=== PATIENT | male | born 2000 | race Caucasian/White ===

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

== ENCOUNTER 2021-02-09 16:25 | Emergency (ER) | payer OTHER ==
[~2021-02-09] VITALS: Ht 182.9 cm; Wt 70.0 kg
[2021-02-09 16:25] VITALS: BP 131/76
[2021-02-09 20:35] LABS: BASO # 0.1 10^3/uL (0.0-0.2); BASO % 0.4 % (0.0-1.0); EOS # 0.9 10^3/uL (0.0-0.5); EOS % 7.8 % (0.0-3.0); HEMATOCRIT 45.5 % (42.0-52.0); LYMPH # 2.6 10^3/uL (1.5-5.0); LYMPH % 22.5 % (24.0-44.0); MEAN CORPUSCULAR HEMOGLOBIN 29.9 pg (27.0-33.0); MEAN CORPUSCULAR VOLUME 90.6 fl (80.0-96.0); MONO % 8.4 % (2.0-8.0); NEUTROPHILS # 6.9 10^3/uL (1.5-8.5); NEUTROPHILS % 60.6 % (36.0-66.0); PLATELET COUNT, AUTOMATED 390 10^3/uL (150-450); RED BLOOD COUNT 5.02 10^6/uL (4.30-6.10); WHITE BLOOD COUNT 11.4 10^3/uL (4.0-10.0)
[2021-02-09 21:10] LABS: ALBUMIN 4.1 GM/DL (3.2-5.2); ALT/SGPT 23 U/L (12-78); BILIRUBIN,DIRECT < 0.1 MG/DL (0.0-0.2); BILIRUBIN,TOTAL 0.3 MG/DL (0.2-1.0); C REACTIVE PROTEIN QUANTITATIV 1.69 MG/DL (0.00-0.30); TOTAL PROTEIN 7.9 GM/DL (6.4-8.2)
--- NOTE | 2021-02-09 21:22 | REPVR ---
PROCEDURE INFORMATION: Exam: XR Right Finger(s) Exam date and time: 02/09/2021 8:23 PM Age: 20 years old Clinical indication: Pain; Hand; Right; Additional info: Swelling thumb from meth injection TECHNIQUE: Imaging protocol: XR Right fingers. Views: Minimum 2 views. COMPARISON: No relevant prior studies available. FINDINGS: Bones/joints: No fractures or dislocation. Soft tissues: Soft tissue swelling of the thumb. IMPRESSION: 1. Soft tissue swelling of the thumb. 2. Otherwise negative right thumb. Electronically signed by: Franc Velasquez On 02/09/2021 21:21:48 PM
[2021-02-09] MEDS ORDERED: DALBAVANCIN 1,500 MG in D5W 250 ML IV ONE (21:45)
== END 2021-02-09 22:28 | disposition home or self-care (01) ==
LOC: M ED 20:48
DX: L03.011 Cellulitis of right finger (principal); L23.7 Allergic contact dermatitis due to plants, except food; F19.10 Other psychoactive substance abuse, uncomplicated
CPT/HCPCS: 73140; 80047; 80076; 85025; 86140; 96365; 99282; J0875